=== PATIENT | female | born 1990 | race Caucasian/White ===

== ENCOUNTER 2018-06-07 15:58 | Emergency (ER) | payer MEDICAID ==
[~2018-06-07] VITALS: Ht 160 cm; Wt 53.5 kg
[2018-06-07 16:33] VITALS: Ht 160 cm; Wt 53.5 kg
[2018-06-07 18:22] VITALS: BP 112/70
== END 2018-06-07 18:22 | disposition home or self-care (01) ==
LOC: ED 15:58
DX: B00.2 Herpesviral gingivostomatitis and pharyngotonsillitis (principal); M79.1 Myalgia